=== PATIENT | female | born 1955 | race Two or more races ===

== ENCOUNTER 2018-04-02 16:48 | Emergency (ER) | payer OTHER ==
[~2018-04-02] VITALS: Ht 160 cm; Wt 88.5 kg
[2018-04-02] MEDS ORDERED: SYNTHROID200 MCG (16:55)
== END 2018-04-02 19:44 | disposition home or self-care (01) ==
LOC: ER 16:48
DX: S70.01XA Contusion of right hip, initial encounter (principal); W06.XXXA Fall from bed, initial encounter; Y93.89 Activity, other specified; Y92.238 Other place in hospital as the place of occurrence of the external cause; Y99.8 Other external cause status

== ENCOUNTER 2018-08-09 10:47 | Outpatient (CLI) | payer OTHER ==
[~2018-08-09 10:47] MED LIST: SYNTHROID200 MCG
== END 2018-08-09 11:19 | disposition home or self-care (01) ==
LOC: MAMO-SONO 10:47
DX: N64.4 Mastodynia (principal); Z12.31 Encounter for screening mammogram for malignant neoplasm of breast

== ENCOUNTER 2018-08-14 10:51 | Outpatient (CLI) | payer OTHER | END 2018-08-14 11:11 | disposition home or self-care (01) | LOC: SONOGRAMA 10:51 → MAMO-SONO 11:15 | DX: N39.0 Urinary tract infection, site not specified (principal); N28.9 Disorder of kidney and ureter, unspecified ==